=== PATIENT | female | born 1975 | race Caucasian/White ===

== ENCOUNTER 2017-04-06 02:27 | Emergency (ER) | payer OTHER ==
[~2017-04-06] VITALS: Ht 157.5 cm; Wt 80.5 kg
[2017-04-06 02:31] VITALS: Ht 157.5 cm; Wt 80.5 kg
[2017-04-06] MEDS ORDERED: SOD CHLORIDE 0.9% 1,000 ML IV STA (03:28)
[2017-04-06] MEDS ORDERED: KETOROLAC 15 MG INJ IV STA (03:28)
[2017-04-06] MEDS ORDERED: ONDANSETRON 4 MG INJ IV STA (03:28)
[2017-04-06 03:54] LABS: URINE BLOOD (Dip) POC Negative (NEGATIVE)
--- NOTE | 2017-04-06 04:10 | RADRPT ---
PROCEDURE: Ultrasound of the abdomen. CLINICAL INDICATION: Right upper quadrant pain. TECHNIQUE: Sonographic images of the abdomen were performed. COMPARISON: No pertinent prior examinations were submitted for comparison. FINDINGS: Liver: The liver is normal in echogencity and size measuring approximately 16.9 cm. The hepatic vei ns and portal veins are patent with appropriate directional flow. No intrahepatic ductal dilatation is seen. Gallbladder: Multiple stones are noted within the gallbladder. There is no definite gallbladder wa ll thickening or pericholecystic free fluid. The common duct measures 3.4 mm. Pancreas: There is limited evaluation of the pancreatic body and tail. The visualized portions of the pancreas are unremarkable. Kidneys: The right kidney measures 11.2 cm. There is normal corticomedullary differentiation. Ther e is no evidence of renal calculus or hydronephrosis. IVC: The visualized portion of the inferior vena cava is unremarkable. Aorta: Normal in size. Free fluid: None. The examination is limited by overlying bowel gas. IMPRESSION: Cholelithiasis. RPTAT: HIKT .David Moore MD, Date Time Electronically viewed and signed by .David Moore MD, on 04/06/2017 04:10 .T/
[2017-04-06 04:18] LABS: BASOPHIL # 0.1 10^3/ul (0.0-0.1); BASOPHILS % 0.4 % (0.0-2.0); EOSINOPHILS % 0.3 % (0.0-7.0); HEMATOCRIT 42.8 % (37.0-47.0); HEMOGLOBIN 14.1 g/dl (12.0-16.0); LYMPHOCYTES # 2.1 10^3/ul (0.8-2.9); LYMPHOCYTES % 18.3 % (15.0-51.0); MEAN CORPUSCULAR HEMOGLOBIN 30.3 pg (29.0-33.0); MEAN CORPUSCULAR HGB CONC 32.9 g/dl (32.0-37.0); MEAN PLATELET VOLUME 10.7 fl (7.4-10.4); MONOCYTE # 0.5 10^3/ul (0.3-0.9); NEUTROPHIL # 8.6 10^3/ul (1.6-7.5); NEUTROPHILS % 76.6 % (39.0-77.0); PLATELET COUNT 288 10^3/UL (140-415); RED BLOOD COUNT 4.65 10^6/ul (4.20-5.40); RED CELL DISTRIBUTION WIDTH 12.2 % (11.5-14.5); WHITE BLOOD COUNT 11.2 10^3/ul (4.8-10.8)
[2017-04-06 04:38] LABS: ALBUMIN 4.5 g/dl (3.3-4.9); ALBUMIN/GLOBULIN RATIO 1.32; BILIRUBIN,INDIRECT 0.2 mg/dl (0-1.1); BILIRUBIN,TOTAL 0.2 mg/dl (0.2-1.3); CALCIUM 9.3 mg/dl (8.4-10.2); CREATININE 0.73 mg/dl (0.44-1.00); TOTAL PROTEIN 7.9 g/dl (6.1-8.1)
[2017-04-06] MEDS ORDERED: ONDA4TAB8 PO (04:40)
[2017-04-06] MEDS ORDERED: OXYC-279 PO (04:40)
[2017-04-06] MEDS ORDERED: IBUP-1542 PO (04:40)
--- NOTE | 2017-04-06 05:06 | ERD ---
ER Documentation Chief Complaint Date/Time DATE: 04/06/17 TIME: 05:03 Chief Complaint upper mid abdominal pain, radiating to back. Vomited x1. HPI 41-year-old man complains of right upper quadrant abdominal pain radiating to the back with one episode of clear nonbloody nonbilious emesis. Symptoms began about 2-3 hours prior to arrival. She has had no fevers or chills, no weight loss, no chest pain or shortness of breath, no blood per rectum or melena. Patient denies previous episodes. ROS All systems reviewed and are negative except as per history of present illness. Medications Home Meds Active Scripts Oxycodone HCl/Acetaminophen (Percocet 5-325 mg Tablet) 1 Each Tablet, 1 EACH PO TID for PAIN LEVEL 6-10, #12 TAB Prov:RUSTY MALDONADO MD 04/06/17 Ondansetron Hcl* (Zofran*) 4 Mg Tablet, 4 MG PO Q8H Y for NAUSEA AND/OR VOMITING , #12 TAB Prov:RUSTY MALDONADO MD 04/06/17 Ibuprofen* (Ibuprofen*) 600 Mg Tablet, 600 MG PO Q8 for PAIN AND/OR INFLAMMATION , #30 TAB Prov:RUSTY MALDONADO MD 04/06/17 Allergies Allergies: Coded Allergies: No Known Allergy (Unverified , 04/06/17) PMhx/Soc None History of Surgery: Yes ( X 4) Anesthesia Reaction: No Hx Neurological Disorder: No Hx Respiratory Disorders: No Hx Cardiac Disorders: No Hx Psychiatric Problems: No Hx Miscellaneous Medical Probl: No Hx Alcohol Use: No Hx Substance Use: No Hx Tobacco Use: No FmHx Family History: No diabetes Physical Exam Vitals Vital Signs Date Time Temp Pulse Resp B/P Pulse Ox O2 Delivery O2 Flow Rate FiO2 04/06/17 02:31 98.2 65 20 118/73 98 Physical Exam GENERAL: Well-developed, well-nourished, moderate pain HEENT: Moist mucous membranes, pink conjunctiva, no cervical spine tenderness or step-off deformities, no goiter, no jaundice or icterus, extraocular movements intact without pain. No submandibular induration, and no pharyngeal erythema NEURO: Alert and oriented 3, cranial nerves II through XII intact bilaterally, pupils equal round reactive to light, no focal deficits or facial asymmetry, sensation intact distally Strength 5/5 in upper and lower extremities bilaterally CARDIAC: Regular rate and rhythm, no murmurs rubs or gallops LUNGS: Clear bilaterally no wheezing crackles or stridor ABDOMEN: Soft nontender, no guarding, no rigidity, no rebound, no psoas sign no obturator sign. SKIN: Warm and dry to touch, no abrasions, contusions, or hematomas, no lacerations, no ecchymosis, no target lesions, and without ulcers EXTREMITIES: No clubbing cyanosis or edema, calves are bilaterally symmetrical, no Homans sign, no popliteal cord sign. Distal pulses equal and bilateral PSYCH: Normal affect without agitation or irritability Result Diagram: 04/06/17 0240 04/06/17 0240 Results 24 hrs Laboratory Tests Test 04/06/17 02:40 04/06/17 03:58 White Blood Count 11.210^3/ul Red Blood Count 4.6510^6/ul Hemoglobin 14.1g/dl Hematocrit 42.8% Mean Corpuscular Volume 92.0fl Mean Corpuscular Hemoglobin 30.3pg Mean Corpuscular Hemoglobin Concent 32.9g/dl Red Cell Distribution Width 12.2% Platelet Count 72546^3/UL Mean Platelet Volume 10.7fl Neutrophils % 76.6% Lymphocytes % 18.3% Monocytes % 4.0% Eosinophils % 0.3% Basophils % 0.4% Nucleated Red Blood Cells % 0.0/100WBC Neutrophils # 8.610^3/ul Lymphocytes # 2.110^3/ul Monocytes # 0.510^3/ul Eosinophils # 0.010^3/ul Basophils # 0.110^3/ul Nucleated Red Blood Cells # 0.010^3/ul Sodium Level 145mmol/L Potassium Level 4.0mmol/L Chloride Level 102mmol/L Carbon Dioxide Level 28mmol/L Anion Gap 19 Blood Urea Nitrogen 9mg/dl Creatinine 0.73mg/dl Glucose Level 163mg/dl Calcium Level 9.3mg/dl Total Bilirubin 0.2mg/dl Direct Bilirubin 0.00mg/dl Indirect Bilirubin 0.2mg/dl Aspartate Amino Transf (AST/SGOT) 28IU/L Alanine Aminotransferase (ALT/SGPT) 30IU/L Alkaline Phosphatase 60IU/L Total Protein 7.9g/dl Albumin 4.5g/dl Globulin 3.40g/dl Albumin/Globulin Ratio 1.32 Lipase 84U/L Bedside Urine pH (LAB) 7.0 Bedside Urine Protein (LAB) 1+ Bedside Urine Glucose (UA) Negative Bedside Urine Ketones (LAB) Trace Bedside Urine Blood Negative Bedside Urine Nitrite (LAB) Negative Bedside Urine Leukocyte Esterase (L Negative Current Medications Medications (Trade) Dose Ordered Sig/Beverly Route PRN Reason Start Time Stop Time Status Last Admin Dose Admin Sodium Chloride (NS) 1,000 ml @ 1,000 mls/hr Q1H STAT IV 04/06/17 03:28 04/06/17 04:27 DC 04/06/17 04:02 Ondansetron HCl (Zofran Inj) 4 mg ONCE STAT IV 04/06/17 03:28 04/06/17 03:30 DC 04/06/17 04:03 Ketorolac Tromethamine (Toradol) 15 mg ONCE STAT IV 04/06/17 03:28 04/06/17 03:30 DC 04/06/17 04:02 Procedures/MDM IV line was established patient was placed on prenatal nurse rhythm strip revealed a sinus rhythm at about 80 bpm with upright P and T waves. Patient was afebrile. I administered 1 L normal saline intravenously, Toradol 15 mg IV, Zofran 4 mg IV CBC and electrolytes are normal, liver function tests are normal, urine analysis was negative for infection. Gallbladder ultrasound was performed revealing cholelithiasis without evidence of acute cholecystitis. Please refer to radiologist dictation for full report. Differential diagnoses considered, included but not limited to acute coronary syndrome, pulmonary embolism, aortic dissection, abdominal aortic aneurysm, sepsis, stroke, meningitis, encephalitis, pneumonia, appendicitis, cholecystitis , bowel obstruction, pyelonephritis, nephrolithiasis, cystitis, as well as metabolic, hematologic, and electrolyte abnormalities. As well as abscess, cellulitis, fractures, and dislocations. Patient feels much better at this time, and vital signs are normal, symptoms have improved. I did give strict instructions to return to the ED if symptoms continue or worsen, patient will otherwise follow-up with primary care physician. Patient understood instructions and agreed to plan. Disclaimer: Inadvertent spelling and grammatical errors are likely due to EHR/ dictation software use and do not reflect on the overall quality of patient care. Also, please note that the electronic time recorded on this note does not necessarily reflect the actual time of the patient encounter. Departure Diagnosis: Primary Impression: Cholelithiasis Cholelithiasis location: gallbladder Cholecystitis presence: without cholecystitis Biliary obstruction: without biliary obstruction Qualified Code : K80.20 - Calculus of gallbladder without cholecystitis without obstruction Condition: Good Patient Instructions: Gallstones RUSTY MALDONADO MD Apr 06, 2017 05:06
[2017-04-06 05:34] VITALS: BP 111/69; PULSE 63; RESP 18
== END 2017-04-06 05:36 | disposition home or self-care (01) ==
LOC: E/R 02:27
DX: K80.20 Calculus of gallbladder without cholecystitis without obstruction (principal); R11.10 Vomiting, unspecified
CPT/HCPCS: 36415; 76705; 80053; 81003; 83690; 85025; 96374; 96375; J1885; J2405; J7030; Z7502

== ENCOUNTER 2017-04-06 12:49 | Inpatient (IN) | payer OTHER ==
[~2017-04-06] VITALS: Ht 162.6 cm; Wt 80.7 kg
[~2017-04-06 12:49] MED LIST: IBUP-1542 PO; ONDA4TAB8 PO; OXYC-279 PO
[2017-04-06] MEDS ORDERED: HYDROmorphONE 1 MG/ML SYG IV STA (12:57)
[2017-04-06] MEDS ORDERED: ONDANSETRON 4 MG INJ IV STA (12:57)
[2017-04-06] MEDS ORDERED: SOD CHLORIDE 0.9% 1,000 ML IV STA (12:57)
[2017-04-06 13:20] VITALS: TEMP 97.8
[2017-04-06 13:30] LABS: BASOPHIL # 0.1 10^3/ul (0.0-0.1); BASOPHILS % 0.3 % (0.0-2.0); HEMATOCRIT 41.4 % (37.0-47.0); HEMOGLOBIN 14.1 g/dl (12.0-16.0); LYMPHOCYTES % 13.5 % (15.0-51.0); MEAN CORPUSCULAR HEMOGLOBIN 31.2 pg (29.0-33.0); MEAN CORPUSCULAR HGB CONC 34.1 g/dl (32.0-37.0); MEAN CORPUSCULAR VOLUME 91.6 fl (82.0-101.0); MEAN PLATELET VOLUME 10.5 fl (7.4-10.4); MONOCYTE # 0.6 10^3/ul (0.3-0.9); NEUTROPHIL # 12.1 10^3/ul (1.6-7.5); NEUTROPHILS % 81.9 % (39.0-77.0); PLATELET COUNT 297 10^3/UL (140-415); RED BLOOD COUNT 4.52 10^6/ul (4.20-5.40); RED CELL DISTRIBUTION WIDTH 12.2 % (11.5-14.5); WHITE BLOOD COUNT 14.8 10^3/ul (4.8-10.8)
[2017-04-06 13:47] LABS: ALBUMIN 4.5 g/dl (3.3-4.9); ALBUMIN/GLOBULIN RATIO 1.32; BILIRUBIN,INDIRECT 0.5 mg/dl (0-1.1); BILIRUBIN,TOTAL 0.5 mg/dl (0.2-1.3); CALCIUM 9.2 mg/dl (8.4-10.2); CREATININE 0.65 mg/dl (0.44-1.00); TOTAL PROTEIN 7.9 g/dl (6.1-8.1)
[2017-04-06] MEDS ORDERED: ONDANSETRON 4 MG INJ IV PRN (14:00)
[2017-04-06] MEDS ORDERED: ACETAMINOPHEN 325 MG TAB PO PRN (14:00)
--- NOTE | 2017-04-06 14:03 | ERA ---
ER Documentation Chief Complaint Date/Time DATE: 04/06/17 TIME: 14:00 Chief Complaint RT UPPER ABD PAIN WITH VOMITING , NO RELIEF WITH MEDS , SEEN HERE FOR SAME HPI This is a 41-year-old female who was seen here last night and diagnosed with biliary colic who presents with persistent pain. The patient had a low-grade white count of 11. The patient describes persistent epigastric and right upper quadrant pain radiating to her shoulder and she is now vomiting and unable to tolerate her pain medications. She denies any fevers or chills. ROS All systems reviewed and are negative except as per history of present illness. Medications Home Meds Discontinued Scripts Oxycodone HCl/Acetaminophen (Percocet 5-325 mg Tablet) 1 Each Tablet, 1 EACH PO TID for PAIN LEVEL 6-10, #12 TAB Prov:RUSTY MALDONADO MD 04/06/17 Ondansetron Hcl* (Zofran*) 4 Mg Tablet, 4 MG PO Q8H Y for NAUSEA AND/OR VOMITING , #12 TAB Prov:RUSTY MALDONADO MD 04/06/17 Ibuprofen* (Ibuprofen*) 600 Mg Tablet, 600 MG PO Q8 for PAIN AND/OR INFLAMMATION , #30 TAB Prov:RUSTY MALDONADO MD 04/06/17 Allergies Allergies: Coded Allergies: No Known Allergy (Unverified , 04/06/17) PMhx/Soc History of Surgery: Yes ( X 4) Anesthesia Reaction: No Hx Neurological Disorder: No Hx Respiratory Disorders: No Hx Cardiac Disorders: No Hx Psychiatric Problems: No Hx Miscellaneous Medical Probl: No Hx Alcohol Use: No Hx Substance Use: No Hx Tobacco Use: No Smoking Status: Never smoker Physical Exam Vitals Vital Signs Date Time Temp Pulse Resp B/P Pulse Ox O2 Delivery O2 Flow Rate FiO2 04/06/17 13:20 97.8 66 18 133/80 97 Room Air 04/06/17 12:52 97.8 68 18 146/81 99 Physical Exam General: Uncomfortable Head: Normocephalic, atraumatic. Eyes: Pupils equally reactive, EOM intact ENT: Moist mucous membranes Neck: Supple, no lymphadenopathy Respiratory: Lungs clear bilaterally, no distress Cardiovascular: RRR, no murmurs, rubs, or gallops Abdominal: Soft, tenderness of the right upper quadrant and epigastrium but negative Mcdaniel sign, no rebound or guarding, no tenderness to McBurney's point : Deferred MSK: No edema, no unilateral swelling, 5/5 strength Neurologic: Alert and oriented, moving all extremities, normal speech, no focal weakness, no cerebellar signs Skin: No rash Psych: Normal mood Result Diagram: 04/06/17 1311 04/06/17 1311 Results 24 hrs Laboratory Tests Test 04/06/17 13:11 White Blood Count 14.810^3/ul Red Blood Count 4.5210^6/ul Hemoglobin 14.1g/dl Hematocrit 41.4% Mean Corpuscular Volume 91.6fl Mean Corpuscular Hemoglobin 31.2pg Mean Corpuscular Hemoglobin Concent 34.1g/dl Red Cell Distribution Width 12.2% Platelet Count 25003^3/UL Mean Platelet Volume 10.5fl Neutrophils % 81.9% Lymphocytes % 13.5% Monocytes % 4.0% Eosinophils % 0.0% Basophils % 0.3% Nucleated Red Blood Cells % 0.0/100WBC Neutrophils # 12.110^3/ul Lymphocytes # 2.010^3/ul Monocytes # 0.610^3/ul Eosinophils # 0.010^3/ul Basophils # 0.110^3/ul Nucleated Red Blood Cells # 0.010^3/ul Sodium Level 144mmol/L Potassium Level 4.0mmol/L Chloride Level 103mmol/L Carbon Dioxide Level 25mmol/L Anion Gap 20 Blood Urea Nitrogen 6mg/dl Creatinine 0.65mg/dl Glucose Level 124mg/dl Calcium Level 9.2mg/dl Total Bilirubin 0.5mg/dl Direct Bilirubin 0.00mg/dl Indirect Bilirubin 0.5mg/dl Aspartate Amino Transf (AST/SGOT) 28IU/L Alanine Aminotransferase (ALT/SGPT) 32IU/L Alkaline Phosphatase 58IU/L Total Protein 7.9g/dl Albumin 4.5g/dl Globulin 3.40g/dl Albumin/Globulin Ratio 1.32 Lipase 56U/L Current Medications Medications (Trade) Dose Ordered Sig/Beverly Route PRN Reason Start Time Stop Time Status Last Admin Dose Admin Sodium Chloride (NS) 1,000 ml @ 1,000 mls/hr Q1H STAT IV 04/06/17 12:57 04/06/17 13:56 DC 04/06/17 13:14 Hydromorphone HCl (Dilaudid) 1 mg ONCE STAT IV 04/06/17 12:57 04/06/17 13:00 DC 04/06/17 13:20 Ondansetron HCl (Zofran Inj) 4 mg ONCE STAT IV 04/06/17 12:57 04/06/17 13:00 DC 04/06/17 13:20 Ondansetron HCl (Zofran Inj) 4 mg BRIDGE ORDER PRN IV NAUSEA AND/OR VOMITING 04/06/17 14:00 04/07/17 13:59 Acetaminophen (Tylenol Tab) 650 mg ER BRIDGE PRN PO MILD PAIN/FEVER 04/06/17 14:00 04/07/17 13:59 Procedures/MDM LAB INTERPRETATION: Increasing leukocytosis MEDICAL DECISION MAKING: The patient presents with intractable pain secondary to biliary colic. Her clinical exam is not consistent with acute cholecystitis however she does have persistent pain. She had an ultrasound several hours ago that showed no evidence of acute cholecystitis. The patient had a nonobstructive hepatobiliary pattern. However, given the persistence of her symptoms inability to tolerate oral intake and oral pain medications at home I would strongly recommend hospitalization in general surgery consultation for semiurgent cholecystectomy. ER COURSE: The patient was given IV fluids and pain control medication. Her leukocytosis is slightly increasing but again no clinical signs of acute cholecystitis no indication for antibiotics, continue to monitor. I spoke to Dr. Ramesh who agrees with the plan of care and will consult on the patient. I kept the patient and/or family informed of laboratory and diagnostic imaging results throughout the emergency room course. DISPOSITION PLAN: Medical surgical admission for management of intractable pain in the setting of biliary colic CONSULTATION: Accepting care team and consultations: I discussed the current laboratory data, diagnostic imaging and emergency care provided. Admitting team: Dr. Cho Admitting team indication: Insurance directed Consulting services: Dr. Ramesh Departure Diagnosis: Primary Impression: Biliary colic Additional Impression: Intractable abdominal pain Condition: Stable PAU LEMUS MD Apr 06, 2017 14:03
[2017-04-06 16:10] VITALS: BP 135/79; PULSE 63; RESP 20
[2017-04-06 16:52] VITALS: Ht 162.6 cm; Wt 80.7 kg
--- NOTE | 2017-04-06 17:11 | HP ---
Date/Time of Note Date/Time of Note DATE: 04/06/17 TIME: 17:08 Assessment/Plan VTE Prophylaxis VTE Prophylaxis Intervention: contraindicated Assessment/Plan Chief Complaint/Hosp Course 41 yo female with cholelithiasis. No evidence of biliary obstruction or infection. Cholelithiasis: - Plan for lap jennifer per surgery - NPO holding hsq ppx Problems: HPI/ROS Admit Date/Time Admit Date/Time Apr 06, 2017 at 13:32 Hx of Present Illness 41 yo female with h/o obestiy presenting with 1 day of RUQ pain with nausea, vomiting inability to tolerate PO. came to ED yesterday, sent home. Pain worsened so came back. Found to have gall stones withotu evidence of cholecytsis. Has not had fevers or systemic symptoms. PMH/Family/Social Past Medical History Medical History: no pertinent history Past Surgical History C section Past Surgical Hx: no surgical history Family History Significant Family History: no pertinent family hx Social History Alcohol Use: none Smoking Status: Never smoker Drug Use: none Exam/Review of Systems Vital Signs Vitals Vital Signs Date Time Temp Pulse Resp B/P Pulse Ox O2 Delivery O2 Flow Rate FiO2 04/06/17 16:10 98.2 63 20 135/79 04/06/17 13:20 97 Room Air Labs Result Diagram: 04/06/17 1311 04/06/17 1311 QUINCY GREEN MD Apr 06, 2017 17:10
[2017-04-06] MEDS ORDERED: morphine 2 MG INJ IV PRN (18:00)
[2017-04-06 19:51] VITALS: BP 132/77; RESP 20
--- NOTE | 2017-04-06 21:20 | CONS ---
Date/Time of Note Date/Time of Note DATE: 04/06/17 TIME: 21:19 Assessment/Plan Assessment/Plan Additional Assessment/Plan [facility] INPATIENT CONSULTATION NOTE DATE OF SERVICE: 04/06/2017 PLACE OF SERVICE: [facility], sixth floor ASSESSMENT AND PLAN: A very-pleasant 41-year-old lady with comorbidity of BMI 30.5 and previous C-sections who presented with signs and symptoms consistent with symptomatic cholelithiasis and likely early acute cholecystitis. I recommended laparoscopic, possible open cholecystectomy and reviewed the operation in detail as well as the reasoning behind my recommendations, risks, benefits, and alternatives and answered all of the patient's and 's questions. Patient and her appear to understand and agreed with the plans. With above assessment, I've recommended the followin. To the operating room in the next available time slot Thank you very much for having me involved in the care of this very pleasant patient and wonderful family. If you have any questions, please feel free to contact me at [phone]. Nature of presenting problem: Moderate severity Please note that, given the limited number of diagnoses or management options, the moderate amount and/or complexity of data needed to be reviewed, and moderate risk of complications and/or morbidity or mortality, this qualifies as moderate complexity type of decision-making. Disclaimer: Inadvertent spelling and grammatical errors are likely due to EHR/ dictation software use and do not reflect on the quality of delivered patient care. Also, please note that the electronic time recorded on this node does not necessarily reflect the actual time of the visit. Updated clinical summary: A very-pleasant 41-year-old lady with comorbidity of BMI 30.5 and previous C- sections who presented with signs and symptoms consistent with symptomatic cholelithiasis and likely early acute cholecystitis. Comorbidities: 1. BMI 30.5 2. Cholelithiasis 3. (4) CONSULTATION REQUESTED BY: HISTORY OF PRESENT ILLNESS: The patient is a very-pleasant 41-year-old lady with comorbidity of BMI 30.5 and previous C-sections who presented with signs and symptoms consistent with symptomatic cholelithiasis and likely early acute cholecystitis. Patient presented yesterday to our emergency department and was sent home with symptomatic cholelithiasis. She returned because she felt worse and had right upper quadrant pain associated with nausea and vomiting and she was not able to tolerate oral intake. She did not report any fevers, chills, diarrhea, or constipation, or blood in the stool or urine. ALLERGIES: NO KNOWN DRUG ALLERGIES MEDICATIONS Documented in the electronic records and reviewed by me. Please see the electronic records for details, as well as details for inpatient medications which were also reviewed by me. SOCIAL HISTORY: The patient lives with family with her and 4 children.- Tob;-ETOH;-IVDU FAMILY HISTORY: There are no significant medical, surgical or oncologic issues in the family as reported by the patient or reflected in the chart. REVIEW OF SYSTEMS: Other than mentioned above, there were no other pertinent positives or pertinent negatives in an otherwise complete 14 point review of systems. PHYSICAL EXAMINATION GENERAL: The patient appears to be a very pleasant lady of descent lying in bed, appearing stated age, and otherwise in no acute distress. BMI: 30.5 VITAL SIGNS: AVSS (please also see auto important data if available as well as the electronic records) HEENT: Normocephalic and atraumatic. Extraocular muscles and hearing are grossly intact bilaterally and symmetrically. Sclerae are nonicteric. Oral cavity is clear; oral mucosa appear to be pink and moist. Dentition: fair to poor. NECK: Supple. There is no lymphadenopathy or JVD. There is no submental, submandibular or supraclavicular lymphadenopathy. CHEST: Rises symmetrically with each breath; patient is breathing comfortably. There are no audible wheezes, rales or rhonchi on the gross exam. HEART: Pulse is regular and palpable There are no audible wheezes, rales or rhonchi on the gross exam.patient is breathing comfortably.Rises symmetrically with each breathThere is no submental, submandibular or supraclavicular lymphadenopathy.There is no lymphadenopathy or JVD.Supple.fairoral mucosa appear to be pink and moist. Oral cavity is clearSclerae are nonicteric. Extraocular muscles and hearing are grossly intact bilaterally and symmetrically.Normocephalic and atraumatic.AVSS BMI:otherwise in no acute distressstatedlying in bedHispanicThere are no significant medical, surgical or oncologic issues in the family as reported by the patient or reflected in the chart.--- lives with family with her and 4 childrenNO KNOWN DRUG ALLERGIES on the right wrist. Capillary refill is normal. Carotid pulses are palpable bilaterally and symmetrically in the neck. EXTREMITIES: Lower extremities contain no pitting edema around the ankles bilaterally and symmetrically. ABDOMEN: Abdomen is soft, mild to moderately tender in the right upper quadrant and nondistended. No evidence of ascites, organomegaly, caput medusae , engorged subcutaneous veins, or other abnormalities. There are no peritoneal signs or guarding. SKIN: Appears to be pink and feels warm to touch. NEUROLOGIC: Awake, alert, and follows commands appropriately. LABORATORY DATA: See below IMAGING: See electronic chart. Please note that I've personally reviewed all pertinent available images and I agree in general with their overall reported findings. Right upper quadrant ultrasound [facility] 04/06/2017 IMPRESSION: Cholelithiasis. Consultation Date/Type/Reason Admit Date/Time Apr 06, 2017 at 13:32 Past Medical History Medical History: no pertinent history Past Surgical History Past Surgical Hx: no surgical history Social History Alcohol Use: none Smoking Status: Never smoker Drug Use: none Exam/Review of Systems Vital Signs Vitals Vital Signs Date Time Temp Pulse Resp B/P Pulse Ox O2 Delivery O2 Flow Rate FiO2 04/06/17 19:51 98.2 62 20 132/77 98 04/06/17 13:20 Room Air Results Result Diagram: 04/06/17 1311 04/06/17 1311 Results 24 hrs Laboratory Tests Test 04/06/17 13:11 White Blood Count 14.8 #H Red Blood Count 4.52 Hemoglobin 14.1 Hematocrit 41.4 Mean Corpuscular Volume 91.6 Mean Corpuscular Hemoglobin 31.2 Mean Corpuscular Hemoglobin Concent 34.1 Red Cell Distribution Width 12.2 Platelet Count 297 Mean Platelet Volume 10.5 H Neutrophils % 81.9 H Lymphocytes % 13.5 L Monocytes % 4.0 Eosinophils % 0.0 Basophils % 0.3 Nucleated Red Blood Cells % 0.0 Neutrophils # 12.1 H Lymphocytes # 2.0 Monocytes # 0.6 Eosinophils # 0.0 Basophils # 0.1 Nucleated Red Blood Cells # 0.0 Sodium Level 144 Potassium Level 4.0 Chloride Level 103 Carbon Dioxide Level 25 Anion Gap 20 H Blood Urea Nitrogen 6 L Creatinine 0.65 Glucose Level 124 Calcium Level 9.2 Total Bilirubin 0.5 Direct Bilirubin 0.00 Indirect Bilirubin 0.5 Aspartate Amino Transf (AST/SGOT) 28 Alanine Aminotransferase (ALT/SGPT) 32 Alkaline Phosphatase 58 Total Protein 7.9 Albumin 4.5 Globulin 3.40 H Albumin/Globulin Ratio 1.32 Lipase 56 Medications Medications Current Medications Morphine Sulfate (morphine) 2 mg Q2H PRN IV PAIN Last administered on t 18:00; Admin Dose 2 MG; Start 04/06/17 at 18:00 Acetaminophen/ Hydrocodone Bitart (Shoshoni (5/325)) 1 tab Q4H PRN PO PAIN LEVEL 4 -6; Start 04/06/17 at 21:30; Status UNV Acetaminophen/ Hydrocodone Bitart ([place] (5/325)) 2 tab Q4H PRN PO PAIN LEVEL 7 -10; Start 04/06/17 at 21:30; Status UNV Hydromorphone HCl (Dilaudid) 0.5 mg Q2 PRN IV PAIN (4-7/10); Start 04/06/17 at 21:30; Status UNV Hydromorphone HCl (Dilaudid) 1 mg Q2 PRN IV PAIN (8-10/10); Start 04/06/17 at 21:30; Status UNV HILDA DE SOUZA M.D. Apr 06, 2017 21:20
[2017-04-06] MEDS ORDERED: HYDROCODONE/APAP (5/325) TAB PO PRN ×2 (21:30)
[2017-04-06] MEDS ORDERED: HYDROmorphONE 1 MG/ML SYG IV PRN ×2 (21:30)
[2017-04-07] VITALS (16 sets, daily range): BP systolic 94–129; BP diastolic 52–84; PULSE 67–84; RESP 12–20
[2017-04-07] MEDS ORDERED: SOD CHLORIDE 0.9% 1,000 ML IV SCH (01:00)
[2017-04-07] MEDS ORDERED: MIDAZOLAM 1 MG/ML 2 ML INJ ONE (07:39)
[2017-04-07] MEDS ORDERED: FENTAnyl 50 MCG/ML VIAL ONE (07:39)
[2017-04-07] MEDS ORDERED: ACETAMINOPHEN 1000MG/100ML IV 100 ML ONE (07:39)
[2017-04-07] MEDS ORDERED: ROCURONIUM 50 MG INJ ONE (07:39)
[2017-04-07] MEDS ORDERED: PROPOFOL 20 ML ONE (07:39)
[2017-04-07] MEDS ORDERED: CEFAZOLIN 1 GM INJ ONE (07:39)
[2017-04-07] MEDS ORDERED: SUCCINYLCHOLINE CHLORIDE 100 MG/5 ML SYG IV ONE (07:39)
[2017-04-07] MEDS ORDERED: LIDOCAINE 1% (MDV) 20 ML INJ ONE (07:40)
[2017-04-07] MEDS ORDERED: METOCLOPRAMIDE 10 MG INJ ONE (07:40)
[2017-04-07] MEDS ORDERED: ONDANSETRON 4 MG INJ ONE (07:40)
[2017-04-07] MEDS ORDERED: FAMOTIDINE 20 MG INJ ONE (07:40)
[2017-04-07] MEDS ORDERED: DEXAMETHASONE 4 MG/ML 1 ML INJ ONE (07:40)
[2017-04-07] MEDS ORDERED: BUPIVACAINE 0.25%/EPI (SDV) 30 ML INJ ONE (07:45)
[2017-04-07] MEDS ORDERED: HYDROmorphONE (0.2 MG/ML) 10ML SYG IV PRN ×3 (08:00)
[2017-04-07] MEDS ORDERED: LABETALOL HCL 20MG INJ IV PRN (08:00)
[2017-04-07] MEDS ORDERED: MEPERIDINE 25 MG INJ IV PRN (08:00)
[2017-04-07] MEDS ORDERED: MIDAZOLAM 1 MG/ML 2 ML INJ IV PRN (08:00)
[2017-04-07] MEDS ORDERED: FENTAnyl 50 MCG/ML VIAL IV PRN ×2 (08:00)
[2017-04-07] MEDS ORDERED: hydrALAzine 20 MG INJ IV PRN (08:00)
[2017-04-07] MEDS ORDERED: METOCLOPRAMIDE 10 MG INJ IV PRN (08:00)
[2017-04-07] MEDS ORDERED: ONDANSETRON 4 MG INJ IV PRN (08:00)
--- NOTE | 2017-04-07 08:02 | HPN ---
Date/Time of Note Date/Time of Note DATE: 04/07/17 TIME: 07:59 Interval H&P Admission Note Pt. seen H&P reviewed: No system changes Pt. seen H&P reviewed. No system changes (I attest that I have seen and examined the patient and reviewed the operation in detail, as well as its risks , benefits and alternatives of the operation). I attest that I have seen and examined the patient and reviewed in detail the operation, and its associated risks, benefits and alternative. I have answered all the patient's questions to the best of my ability and the patient wishes to proceed. Please refer to rest of electronic medical record for additional updates. HILDA DE SOUZA M.D. Apr 07, 2017 08:02
[2017-04-07] MEDS ORDERED: morphine 10 MG INJ ONE (08:29)
[2017-04-07] MEDS ORDERED: OCULAR LUBRICANT 3.5 GM OPH OINT ONE (08:36)
[2017-04-07] MEDS ORDERED: SUGAMMADEX SODIUM 200 MG/2 ML VIAL IV ONE (08:45)
[2017-04-07] MEDS ORDERED: NA PHOSPHATE/BIPHOS 133 ML ENEMA PR PRN (11:00)
[2017-04-07] MEDS ORDERED: BISACODYL 10 MG SUPP PR PRN (11:00)
[2017-04-07] MEDS: FENTAnyl 50 MCG/ML VIAL IV PRN ×2 (11:06→11:13)
[2017-04-07] MEDS ORDERED: D5W-0.45 NACL + KCL 20 MEQ 1,000 ML IV ONE (11:10)
[2017-04-07] MEDS: D5W-0.45 NACL + KCL 20 MEQ 1,000 ML IV SCH ×2 (11:16→21:45)
--- NOTE | 2017-04-07 11:17 | OPR ---
Date/Time of Note Date/Time of Note DATE: 04/07/17 TIME: 11:17 Operative Report Procedure Description [facility] INPATIENT OPERATIVE NOTE PLACE OF SERVICE: [facility] DATE OF SURGERY: 04/07/2017 PREOPERATIVE DIAGNOSIS: 1. Symptomatic cholelithiasis, possible early acute cholecystitis 2. BMI 30.5 3. Cholelithiasis 4. (4) POSTOPERATIVE DIAGNOSIS: 1. Severe acute on chronic cholecystitis with gallbladder hydrops 2. BMI 30.5 3. Cholelithiasis 4. (4) 5. Fatty liver disease OPERATION: 1. Laparoscopic cholecystectomy (modifier 22) 2. Laparoscopic core needle liver biopsy (segment 5, 3 cores) SURGEON: Hilda De Souza M.D. MULTICUT LINE OPERATOR: None ANESTHESIA: General endotracheal tube anesthesia ANESTHESIOLOGIST: Britton Eller CRNA BRIEF SUMMARY: An otherwise uncomplicated but challenging laparoscopic cholecystectomy was performed with findings of severe acute on chronic cholecystitis with gallbladder hydrops, significant cholelithiasis requiring a 6 cm upper midline incision to remove the gallbladder, and fatty liver disease.. Updated clinical summary: A very-pleasant 41-year-old lady with comorbidity of BMI 30.5 and previous C- sections who presented with signs and symptoms consistent with symptomatic cholelithiasis and likely early acute cholecystitis. Comorbidities: 1. BMI 30.5 2. Cholelithiasis 3. (4) BRIEF HISTORY: The patient is a very pleasant 41-year-old lady with comorbidity of BMI 30.5 and previous C-sections who presented with signs and symptoms consistent with symptomatic cholelithiasis and likely early acute cholecystitis. I met with the patient and family (her ) and counseled them regarding the possible options of treatment, and I strongly suggested a laparoscopic, possible open cholecystectomy. We reviewed the operation in detail as well as the risks, benefits, alternatives, and expected outcomes of this operation. After careful consideration of all the risks, benefits, and alternatives, the patient and family appeared to understand those risks and wished to proceed with surgery. For a detailed report of my consultation with patient and family, please refer to my separate consultation note. STATEMENT OF THE INFORMED CONSENT: The patient and family appeared to understand the risks of the operation to include, but not be limited to risk of postoperative pain and scar tissue, possible infection or bleeding requiring other interventions such as opening the wound, placement of drainage catheters, or other operative interventions; possible injury to surrounding to structures including bowel, bladder, bile duct, or blood vessels, or solid organs such as liver, kidney, or pancreas requiring other interventions or procedures; possible leakage of bile from surgical clip sites, suture lines, or worse, from common bile duct injury, causing significant increase in morbidity and mortality and requiring multiple interventions including but not limited to, placement of drainage catheters, imaging studies, as well as operative interventions; possible other source of sepsis such as urinary tract infections or pneumonias, or other sources of potentially life threatening problems such as deep venous thrombus formation causing pulmonary embolism, myocardial arrhythmias and infarctions, and even . After careful consideration of all their options, the patient and family appeared to understand and wished to proceed with surgery. DESCRIPTION OF PROCEDURE: After obtaining informed consent, the patient was brought into the operating room and was placed in a normal supine position, where successful general endotracheal tube anesthesia was performed. The patient 's abdominal skin was prepped and draped, from the nipple line down to the level of the groins, in the usual sterile fashion. Intravenous access was already in place, and appropriately chosen and dosed prophylactic intravenous antimicrobials were administered. We then called a surgical time-out where patient's identification, date of , nature of the operation, allergies, presence of intravenous antimicrobials, presence of needed equipment, and any other concerns were reviewed and agreed upon by all members of the operating room team. We then started the operation by placing a 5-mm skin incision in the right- upper quadrant, subcostal midclavicular line, and introduced a 5-mm [employer] trocar into the peritoneal space, visualizing all the layers of the abdominal wall as we entered. Note that there was no indication of any injury to underlying structures once we entered the peritoneum. There was considerable subcutaneous fat. We insufflated the abdominal cavity to a maximum pressure of 15 mmHg, again, confirmed lack of any injury to underlying structures prior to visualizing the rest of the abdominal cavity. We found the fundus of the gallbladder to be visible and the gallbladder appeared to be distended. There was no evidence of malignancy. No evidence of calcifications or significant issues with adhesions, or other abnormalities. Liver appeared to be steatotic. With this information, we went a head and placed the other trocars under direct visualization, after injecting their sites with 0.25% Marcaine with epinephrine , placing a 5-mm trocar in the umbilical midline area, a 5-mm trocar in the right anterior axillary line, and a 12-mm trocar in the midline subxiphoid region. With our instruments in place, we had excellent visualization and access to the right-upper quadrant. We then attempted to decompress the gallbladder with a laparoscopic needle. We removed approximately 60 cc of what appeared to be gallbladder hydrops. Interestingly, the gallbladder did not decompress and he was essentially the same size as prior to the aspiration. This indicated presence of significant stone disease. We had to do lysis of adhesion around the distended gallbladder to be able to see the area of the triangle of Calot low. We grasped the fundus of the gallbladder and pointed up towards the right-upper quadrant. We were then able to grasp the infundibulum and pull it out in order to expose the critical triangle of Calot. We then placed our usual serosal cuts along the long axis of the gallbladder 1 cm away from its attachment to the liver bed up towards the fundus, and then joined these 2 lines under the infundibulum, taking care not to deliver any energy to underlying structures. Because of the significant amount of inflammation in the triangle of Calot low, and to maximize the degree of safety of the operation, I took the gallbladder top-down using cautery. There was significant amounts of inflammation in the gallbladder bed and this added to the blood loss. We had to use to Raytek in the abdominal cavity in order to control the hemorrhage from the wall bladder bed as well as to allow us to maintain visualization of the field by pushing the liver up towards the right shoulder. We then performed meticulous dissection to identify and circumferentially isolate both the cystic duct and cystic artery, prior to transecting them between 2 surgical Endoclips, proximally and one distally on the cystic artery and 3 surgical endoclips proximally and one distally on the cystic duct, transecting both using cold scissors, and only after making sure that these were the only 2 structures going into the gallbladder. 1 posterior branch of the cystic artery also has one clip on it proximally that we transected with the cautery. We then delivered the gallbladder out inside of an EndoCatch bag through the 12-mm trocar site with having to enlarge and the fascia to approximately 6 cm. Note that the gallbladder did not fit inside the back completely. There was also spillage of purulent appearing bile and stones in the wound. We promptly cleared all of the stones as well as suction off the purulent bile from the wound. The gallbladder was sent to Pathology for evaluation. We then performed core needle liver biopsy of segment 8 with a Bard biopsy needle and removed 3 cores and sent to pathology for permanent sections under direct visualization. Hemostasis was achieved using cautery. Returning to the abdominal cavity, we ensured that there was adequate hemostasis and bile-stasis prior to removal of all of or equipment, including the 2 Rayteks as well as the pneumoperitoneum, and then reapproximating the 12- mm trocar site with several (5) [id number] Vicryl sutures, followed by washing the wounds with copious amounts of normal saline, and then reapproximating the skin using interrupted 4-0 Monocryl sutures on the 5 mm skin incisions and skin stapler on the proximal distal edges of the midline upper subxiphoid skin incision with packing of the rest of the wound with normal saline soaked gauze. This was done due to concerns for higher chance of wound infection given the spillage of as mentioned above. Light dressing was then applied. At the end of the operation, both the sponge count and needle count were reportedly correct x2. The patient tolerated the procedure without any reported complications. ESTIMATED BLOOD LOSS: 100 mL BLOOD OR BLOOD PRODUCT TRANSFUSIONS: None to my knowledge. SPECIMENS: 1. Gallbladder 2. Core needle liver biopsy segment 5, 3 cores COMPLICATIONS: None. DISPOSITION: Recovery area. Disclaimer: Inadvertent spelling and grammatical errors are likely due to EHR/ dictation software use and do not reflect on the quality of delivered patient care. HILDA DE SOUZA M.D. Apr 07, 2017 11:17
--- NOTE | 2017-04-07 17:34 | PN ---
Date/Time of Note Date/Time of Note DATE: 04/07/17 TIME: 17:33 Assessment/Plan VTE Prophylaxis VTE Prophylaxis Intervention: LMWH Lines/Catheters IV Catheter Type (from Nrsg): Peripheral IV Assessment/Plan Chief Complaint/Hosp Course 41 yo female with cholelithiasis. No evidence of biliary obstruction or infection. Cholelithiasis: - s/p lap jennifer - pain control - PO as tolerated Likely dc tomorrow Problems: Subjective 24 Hr Interval Summary Free Text/Dictation s/p lap jennifer today, very large GB requiring large incision to remove Seen this afternoon feels well, tolerating PO Minimal pain Exam/Review of Systems Vital Signs Vitals Vital Signs Date Time Temp Pulse Resp B/P Pulse Ox O2 Delivery O2 Flow Rate FiO2 04/07/17 14:16 98.3 63 18 94/55 97 04/07/17 11:34 Room Air Intake and Output 04/06/17 04/06/17 04/07/17 15:00 23:00 07:00 Intake Total 225 ml Balance 225 ml Results Result Diagram: 04/06/17 1311 04/06/17 1311 Medications Medications Current Medications Acetaminophen/ Hydrocodone Bitart ([place] (5/325)) 1 tab Q4H PRN PO PAIN LEVEL 4 -6; Start 04/06/17 at 21:30 Acetaminophen/ Hydrocodone Bitart ([place] (5/325)) 2 tab Q4H PRN PO PAIN LEVEL 7 -10; Start 04/06/17 at 21:30 Hydromorphone HCl (Dilaudid) 0.5 mg Q2 PRN IV PAIN (4-7/10); Start 04/06/17 at 21:30 Hydromorphone HCl 1 mg 1 mg Q2 PRN IV PAIN (8-10/10) Last administered on 21:31; Admin Dose 1 MG; Start 04/06/17 at 21:30 Potassium Chloride/Dextrose/ Sod Cl (D5-1/2ns + KCl 20 Meq) 1,000 ml @ 100 mls/ hr Q10H IV Last administered on 04/07/17 11:16; Admin Dose 100 MLS/HR; Start 04/07/17 at 10:54 Docusate Sodium (Colace) 100 mg BID PRN PO CONSTIPATION; Start 04/07/17 at 11: 00 Bisacodyl (Dulcolax Supp) 10 mg BID PRN WI CONSTIPATION; Start 04/07/17 at 11: 00 Sodium Biphosphate/ Sodium Phosphate (Fleet Enema) 133 ml BID PRN WI CONSTIPATION; Start 04/07/17 at 11:00 Famotidine (Pepcid Iv) 20 mg DAILY IV ; Start 04/08/17 at 09:00 Enoxaparin Sodium (Lovenox) 40 mg DAILY SC ; Start 04/08/17 at 09:00 QUINCY GREEN MD Apr 07, 2017 17:34
[2017-04-08 02:00] VITALS: BP 108/57; RESP 20
[2017-04-08] MEDS: D5W-0.45 NACL + KCL 20 MEQ 1,000 ML IV SCH (06:54)
[2017-04-08 07:35] VITALS: BP 107/75; RESP 18
[2017-04-08] MEDS ORDERED: ENOXAPARIN 40 MG/0.4 ML SYG SC SCH (09:00)
[2017-04-08] MEDS ORDERED: FAMOTIDINE 20 MG INJ IV SCH (09:00)
[2017-04-08] MEDS: DOCUSATE SODIUM 100 MG CAP PO PRN ×2 (09:17→16:12)
--- NOTE | 2017-04-08 09:18 | PDOCDIS ---
Discharge Instructions DIAGNOSIS Discharge Diagnosis Cholelithiasis CONDITION Patient Condition: Good HOME CARE INSTRUCTIONS: Diet Instructions: Low Fat /Cholesterol ACTIVITY: Activity Restrictions: Slowly Increase Activity FOLLOW UP/APPOINTMENTS Follow-up Plan Follow up in surgery clinic for further care Avoid fatty meals QUINCY GREEN MD Apr 08, 2017 09:18
--- NOTE | 2017-04-08 09:25 | DS ---
Date/Time of Note Date/Time of Note DATE: 04/08/17 TIME: 09:24 Discharge Summary Admission/Discharge Info Admit Date/Time Apr 06, 2017 at 13:32 Discharge Date/Time Discharge Diagnosis Cholelithiasis Patient Condition: Good Hx of Present Illness 41 yo female with h/o obestiy presenting with 1 day of RUQ pain with nausea, vomiting inability to tolerate PO. came to ED yesterday, sent home. Pain worsened so came back. Found to have gall stones withotu evidence of cholecytsis. Has not had fevers or systemic symptoms. Hospital Course 41 yo female with cholelithiasis. No evidence of biliary obstruction or infection. Patient underwent successful cholecystectomy without complications Home Meds Discontinued Scripts Oxycodone HCl/Acetaminophen (Percocet 5-325 mg Tablet) 1 Each Tablet, 1 EACH PO TID for PAIN LEVEL 6-10, #12 TAB Prov:RUSTY MALDONADO MD 04/06/17 Ondansetron Hcl* (Zofran*) 4 Mg Tablet, 4 MG PO Q8H Y for NAUSEA AND/OR VOMITING , #12 TAB Prov:RUSTY MALDONADO MD 04/06/17 Ibuprofen* (Ibuprofen*) 600 Mg Tablet, 600 MG PO Q8 for PAIN AND/OR INFLAMMATION , #30 TAB Prov:RUSTY MALDONADO MD 04/06/17 Primary Care Provider Care Physician No Primary Time spent on discharge: < 30 minutes QUINCY GREEN MD Apr 08, 2017 09:25
[2017-04-08 13:24] VITALS: BP 110/71; RESP 20
--- NOTE | 2017-04-08 21:57 | PN ---
Date/Time of Note Date/Time of Note DATE: 04/08/17 TIME: 21:57 Assessment/Plan Lines/Catheters IV Catheter Type (from Nrsg): Saline Lock Assessment/Plan Assessment/Plan [facility] Progress Note Date of Service: 04/08/2017 Place of service: [facility] second floor [facility] Today's Assessment & Plan: Overall stable and doing well. No indication for major postoperative complications or surgical site infections. Patient's original pain seems to have resolved. No indication for acute surgical intervention. Ok to d/c from my standpoint with home health set up for TID wet to moist dressing changes. With above assessment, I've recommended the following for today: 1. Discharge home with home health nurse and TID wet to moist dressing changes 7. Discharge instructions: "Please call [phone] if any of fever, nausea, vomiting, discharge from wound, wound redness, increase or sudden pain, blood in stool or vomit, or any other unusual signs or symptoms. Also, please call the same number in a few days to schedule an appointment for your follow up visit. Patient may remove dressings tomorrow. Showers OK starting tomorrow. No swimming , hot tub or bath for 2 weeks. No lifting more than 25 lbs for 8 weeks." Thank you again for your great care of this very pleasant patient and wonderful family. If there are any questions, please feel free to call me at [phone]. Nature of presenting problem: High severity Please note that, given the extensive number of diagnoses or management options , the extensive amount and/or complexity of data needed to be reviewed, and high risk of complications and/or morbidity or mortality, this qualifies as high complexity type of decision-making. Disclaimer: Inadvertent spelling and grammatical errors are likely due to EHR/ dictation software use and do not reflect on the quality of delivered patient care. Also, please note that the electronic time recorded on this node does not necessarily reflect the actual time of the visit. Updated clinical summary: A very-pleasant 41-year-old lady with comorbidity of BMI 30.5 and previous C- sections who presented with signs and symptoms consistent with symptomatic cholelithiasis and likely early acute cholecystitis. S/p an otherwise uncomplicated but challenging laparoscopic cholecystectomy with findings of severe acute on chronic cholecystitis with gallbladder hydrops, significant cholelithiasis requiring a 6 cm upper midline incision to remove the gallbladder , and fatty liver disease at [facility] 04/07/17. Comorbidities: 1. Severe acute on chronic cholecystitis with gallbladder hydrops 2. BMI 30.5 3. Cholelithiasis 4. (4) 5. Fatty liver disease 6. S/p an otherwise uncomplicated but challenging laparoscopic cholecystectomy with findings of severe acute on chronic cholecystitis with gallbladder hydrops , significant cholelithiasis requiring a 6 cm upper midline incision to remove the gallbladder, and fatty liver disease, s/p core needle liver biopsy segment 5 (x3 cores) at [facility] 04/07/17. Subjective: No major events or complaints; no major abd pain and under control with medications; no n/v/d; no sob or cp; + flatus; + BM; + activity Objective: Vitals: See below I's & O's: See below Exam: GENERAL: On exam, the patient was lying in bed and appeared to be comfortable and in no acute distress. ABDOMEN: Soft, minimally tender around incisions consistent with expected findings and nondistended. Incision dressings are clean, dry and intact without any evidence of obvious underlying erythema, edema, discharge, or hernia. There are no peritoneal signs or guarding. SKIN: Skin appears to be pink and feels warm to touch. NEUROLOGIC: Patient is awake, alert, and follows commands appropriately. Labs: See below Exam/Review of Systems Vital Signs Vitals Vital Signs Date Time Temp Pulse Resp B/P Pulse Ox O2 Delivery O2 Flow Rate FiO2 04/08/17 13:24 98.0 73 20 110/71 98 04/07/17 20:00 Room Air Intake and Output 04/07/17 04/07/17 04/08/17 15:00 23:00 07:00 Intake Total 1100 ml 1480 ml 210 ml Output Total 100 ml Balance 1000 ml 1480 ml 210 ml Results Result Diagram: 04/06/17 1311 04/06/17 1311 HILDA DE SOUZA M.D. Apr 08, 2017 21:57
== END 2017-04-08 17:00 | disposition home health service (06) | DRG 419 ==
LOC: E/R 12:49 → MS2 13:32
PROVIDERS: ADMIT Internal Medicine; ATTEND Internal Medicine
PROC: 0FB04ZX Excision of Liver, Percutaneous Endoscopic Approach, Diagnostic (ICD-10-PCS; 2017-04-07)
PROC: 0FT44ZZ Resection of Gallbladder, Percutaneous Endoscopic Approach (ICD-10-PCS; principal; 2017-04-07 08:00)
DX: K80.12 Calculus of gallbladder with acute and chronic cholecystitis without obstruction (principal); K76.0 Fatty (change of) liver, not elsewhere classified; E66.9 Obesity, unspecified; Z68.30 Body mass index [BMI] 30.0-30.9, adult
CPT/HCPCS: 36415; 80053; 83690; 85025; 88304; 88307; 88313; 96374; 96375; J0131; J0690; J1100; J1170; J1650; J2175; J2250; J2270; J2405; J2765; J3010; J3480; J7030; J7999

== ENCOUNTER 2017-04-19 10:48 | Outpatient (CLI) | payer OTHER ==
[~2017-04-19] VITALS: Ht 162.6 cm; Wt 78.2 kg
[2017-04-19 10:53] VITALS: BP 120/74; PULSE 101; RESP 18; Ht 162.6 cm; Wt 78.2 kg
--- NOTE | 2017-04-19 17:40 | PN ---
Date/Time of Note Date/Time of Note DATE: 04/19/17 TIME: 17:35 Assessment/Plan Assessment/Plan Assessment/Plan [facility] Progress Note Date of Service: 04/19/2017 Place of service: [facility] Today's Assessment & Plan: Overall stable and doing well post op. No indication for major postoperative complications or surgical site infections. No indication for acute surgical intervention. Ok to discontinue home health, but continue TID wet to moist dressing changes. With above assessment, I've recommended the following for today: 1. F/u with PCP 2. F/u with us prn 3. Again spent time counseling regarding healthy style of living and permanent changes that would accomplish that goal Thank you again for your great care of this very pleasant patient and wonderful family. If there are any questions, please feel free to call me at [phone]. Nature of presenting problem: High severity Please note that, given the extensive number of diagnoses or management options , the extensive amount and/or complexity of data needed to be reviewed, and high risk of complications and/or morbidity or mortality, this qualifies as high complexity type of decision-making. Disclaimer: Inadvertent spelling and grammatical errors are likely due to EHR/ dictation software use and do not reflect on the quality of delivered patient care. Also, please note that the electronic time recorded on this node does not necessarily reflect the actual time of the visit. Updated clinical summary: A very-pleasant 41-year-old lady with comorbidity of BMI 30.5 and previous C- sections who presented with signs and symptoms consistent with symptomatic cholelithiasis and likely early acute cholecystitis. S/p an otherwise uncomplicated but challenging laparoscopic cholecystectomy with findings of severe acute on chronic cholecystitis with gallbladder hydrops, significant cholelithiasis requiring a 6 cm upper midline incision to remove the gallbladder , and fatty liver disease at [facility] 04/07/17. Comorbidities: 1. Severe acute on chronic cholecystitis with gallbladder hydrops 2. BMI 30.5 3. Cholelithiasis 4. (4) 5. Fatty liver disease. Severe macrovesicular and microvesicular steatosis on core needle biopsy of the liver. 6. S/p an otherwise uncomplicated but challenging laparoscopic cholecystectomy with findings of severe acute on chronic cholecystitis with gallbladder hydrops , significant cholelithiasis requiring a 6 cm upper midline incision to remove the gallbladder, and fatty liver disease, s/p core needle liver biopsy segment 5 (x3 cores) at [facility] 04/07/17. Subjective: No major events or complaints since d/c; no major abd pain and under control with medications; no n/v/d; no sob or cp; + flatus; + BM; + activity Objective: Vitals: See below I's & O's: See below Exam: GENERAL: On exam, the patient was sitting in a chair and appeared to be comfortable and in no acute distress. ABDOMEN: Soft, minimally tender around incisions consistent with expected findings and nondistended. Incision dressings are clean, dry and intact without any evidence of obvious underlying erythema, edema, discharge, or hernia. Size of the upper midline cavity is much smaller than when we first started. Approximately 1 cm in depth. Nice beefy red granulation tissue inside. There are no peritoneal signs or guarding. SKIN: Skin appears to be pink and feels warm to touch. NEUROLOGIC: Patient is awake, alert, and follows commands appropriately. Exam/Review of Systems Vital Signs Vitals Vital Signs Date Time Temp Pulse Resp B/P Pulse Ox O2 Delivery O2 Flow Rate FiO2 04/19/17 10:53 98.2 101 18 120/74 91 Room Air HILDA DE SOUZA M.D. Apr 19, 2017 17:40
== END 2017-04-19 17:00 | disposition home or self-care (01) ==
LOC: HPC 10:48
PROVIDERS: ATTEND Transplant Surgery
DX: K80.50 Calculus of bile duct without cholangitis or cholecystitis without obstruction (principal); K80.12 Calculus of gallbladder with acute and chronic cholecystitis without obstruction; K76.0 Fatty (change of) liver, not elsewhere classified
CPT/HCPCS: G0463

== ENCOUNTER 2018-06-02 17:43 | Emergency (ER) | END 2018-06-02 20:50 | disposition home or self-care (01) ==